=== PATIENT | female | born 1970 | race Caucasian/White ===

== ENCOUNTER 2023-12-16 07:56 | Emergency (ER) | payer OTHER ==
[~2023-12-16] VITALS: Ht 160 cm; Wt 104.5 kg
[2023-12-16 08:57] VITALS: BP 117/70; PULSE 76; TEMP 98.5
== END 2023-12-16 08:57 | disposition home or self-care (01) ==
LOC: COL.ER 07:56
DX: S50.821A Blister (nonthermal) of right forearm, initial encounter (principal); F17.200 Nicotine dependence, unspecified, uncomplicated; X58.XXXA Exposure to other specified factors, initial encounter